=== PATIENT | female | born 1960 | race Caucasian/White ===

== ENCOUNTER 2017-07-18 08:00 | Emergency (ER) | payer OTHER ==
[~2017-07-18] VITALS: Ht 157.5 cm; Wt 108.0 kg
[~2017-07-18 08:00] MED LIST: CYCL10TA PO; FLUO40CA PO; JANU50TA4 PO; LISI40TA PO; TETA1INJ5 IM; TRAM50TA PO; ZOSTINJ SQ
[2017-07-18 08:04] VITALS: BP 136/74; PULSE 69; RESP 20; TEMP 97.8; O2SAT 97
[2017-07-18] MEDS ORDERED: ONDANSETRON HCL 4 MG/2 ML VIAL IVP ONE (08:15)
[2017-07-18] MEDS ORDERED: SODIUM CHLORIDE 0.9% FLUSH 10 ML FLUSH IV FLUSH PRN (08:15)
[2017-07-18] MEDS ORDERED: SODIUM CHLOR 0.9% 1000 ML INJ 1,000 ML IV SCH (08:15)
[2017-07-18] MEDS ORDERED: MORPHINE SULFATE 4 MG/ML INJ IV PUSH ONE (08:15)
[2017-07-18 08:20] VITALS: PULSE 67; RESP 18; O2SAT 97
--- NOTE | 2017-07-18 08:20 | PD ---
HPI Chief Complaint: Flank/Kidney Pain Time Seen by Provider: 08:08 Travel History International Travel<30 days: No Contact w/Intl Traveler<30days: No Traveled to known affect area: No History of Present Illness HPI Patient is a 56-year-old female who presents to the emergency room with complaints of left-sided flank pain. Patient reports that she began to have bouts of left-sided flank pain which radiates to her left groin for the past 2 days. Patient reports that symptoms are intermittent in nature, symptoms are exacerbated when she sits down and relaxes. Nothing makes the pain better when she has it. Patient endorses that she does have nausea with no vomiting with her symptoms. Patient denies any constipation or diarrhea. Patient denies any dysuria, hematuria, urinary urgency or frequency. Patient denies history of kidney stones in the past. Denies any fall or trauma to her left flank. She does have a past surgical history of hysterectomy, resection of pelvic mass, cholecystectomy. Patient with no chest pain or shortness of breath, patient with no other complaints at this time. PFSH Past Medical History Hx Anticoagulant Therapy: No Asthma: Yes Cerebrovascular Accident: Yes Diabetes: Yes Patient Takes Glucophage: No Diminished Hearing: No Hypertension: Yes Musculoskeletal: Yes Neurologic: Yes (STROKE 2003) ?: Not Menopausal: Yes : 2 Past Surgical History Section: Yes Cholecystectomy: Yes Hysterectomy: Yes Social History Alcohol Use: No Tobacco Use: Yes (10 cigarette per day) Substance Use: No Allergies-Medications (Allergen,Severity, Reaction): Coded Allergies: penicillin G (Unverified Allergy, Intermediate, rash, 07/18/17) Reported Meds & Prescriptions Reported Meds & Active Scripts Active Fluoxetine (Fluoxetine HCl) 40 Mg Cap 40 Cap PO DAILY Tetanus-Diphtheria Toxoid Inj 2-2 Lfu/0.5 Ml Inj 0.5 Ml IM .ONCE Zostavax Inj (Zoster Vaccine Live) 0.65 Ml Inj 0.65 Ml SQ .ONCE Flexeril (Cyclobenzaprine HCl) 10 Mg Tab 10 Mg PO TID Lisinopril 40 Mg Tab 40 Mg PO DAILY Janumet (Sitagliptin-Metformin) 50-500 Mg Tab 1 Tab PO BID Tramadol (Tramadol HCl) 50 Mg Tab 50 Mg PO BID PRN Review of Systems General / Constitutional: No: Fever Eyes: No: Visual changes HENT: No: Headaches Cardiovascular: No: Chest Pain or Discomfort Respiratory: No: Shortness of Breath Gastrointestinal: Positive: Nausea, No: Vomiting, Diarrhea, Abdominal Pain Genitourinary: Positive: Flank Pain, No: Urgency, Frequency, Dysuria, Hematuria Musculoskeletal: No: Pain Skin: No Rash Neurologic: No: Weakness Psychiatric: No: Depression Endocrine: No: Polydipsia Hematologic/Lymphatic: No: Easy Bruising Physical Exam Narrative GENERAL: Mild distress SKIN: Focused skin assessment warm/dry. HEAD: Atraumatic. Normocephalic. EYES: Pupils equal and round. No scleral icterus. No injection or drainage. ENT: No nasal bleeding or discharge. Mucous membranes pink and moist. NECK: Trachea midline. No JVD. CARDIOVASCULAR: Regular rate and rhythm. No murmur appreciated. RESPIRATORY: No accessory muscle use. Clear to auscultation. Breath sounds equal bilaterally. GASTROINTESTINAL: Abdomen soft, non-tender, nondistended. Hepatic and splenic margins not palpable. Patient with left-sided flank pain MUSCULOSKELETAL: No obvious deformities. No clubbing. No cyanosis. No edema. NEUROLOGICAL: Awake and alert. No obvious cranial nerve deficits. Motor grossly within normal limits. Normal speech. PSYCHIATRIC: Appropriate mood and affect; insight and judgment normal. Data Data Last Documented VS Vital Signs Date Time Temp Pulse Resp B/P (MAP) Pulse Ox O2 Delivery O2 Flow Rate FiO2 07/18/17 08:20 67 18 97 Room Air 07/18/17 08:04 97.8 136/74 (94) Orders Orders Complete Blood Count With Diff (07/18/17 08:15) Comprehensive Metabolic Panel (07/18/17 08:15) Lipase (07/18/17 08:15) Prothrombin Time / Inr (Pt) (07/18/17 08:15) Act Partial Throm Time (Ptt) (07/18/17 08:15) Urinalysis - C+S If Indicated (07/18/17 08:15) Ct Abd/Pel W/O Iv Contrast (07/18/17 08:15) Iv Access Insert/Monitor (07/18/17 08:15) Ecg Monitoring (07/18/17 08:15) Oximetry (07/18/17 08:15) Morphine Inj (Morphine Inj) (07/18/17 08:15) Ondansetron Inj (Zofran Inj) (07/18/17 08:15) Sodium Chlor 0.9% 1000 Ml Inj (Ns 1000 M (07/18/17 08:15) Sodium Chloride 0.9% Flush (Ns Flush) (07/18/17 08:15) Electrocardiogram (07/18/17 08:15) Labs Laboratory Tests Test 07/18/17 08:18 07/18/17 08:25 Urine Color YELLOW Urine Turbidity CLEAR Urine pH 5.5 Urine Specific Home 1.024 Urine Protein TRACE mg/dL Urine Glucose (UA) NEG mg/dL Urine Ketones NEG mg/dL Urine Occult Blood NEG Urine Nitrite NEG Urine Bilirubin NEG Urine Urobilinogen 0.2 MG/DL Urine Leukocyte Esterase NEG Urine WBC 1 /hpf Urine Squamous Epithelial Cells 3 /hpf Urine Bacteria RARE /hpf Urine Hyaline Casts 3 /lpf Microscopic Urinalysis Comment CULT NOT INDICATED White Blood Count 8.4 TH/MM3 Red Blood Count 4.82 MIL/MM3 Hemoglobin 14.2 GM/DL Hematocrit 42.1 % Mean Corpuscular Volume 87.3 FL Mean Corpuscular Hemoglobin 29.6 PG Mean Corpuscular Hemoglobin Concent 33.9 % Red Cell Distribution Width 14.1 % Platelet Count 257 TH/MM3 Mean Platelet Volume 7.6 FL Neutrophils (%) (Auto) 66.0 % Lymphocytes (%) (Auto) 25.8 % Monocytes (%) (Auto) 5.2 % Eosinophils (%) (Auto) 2.5 % Basophils (%) (Auto) 0.5 % Neutrophils # (Auto) 5.6 TH/MM3 Lymphocytes # (Auto) 2.2 TH/MM3 Monocytes # (Auto) 0.4 TH/MM3 Eosinophils # (Auto) 0.2 TH/MM3 Basophils # (Auto) 0.0 TH/MM3 CBC Comment DIFF FINAL Differential Comment Prothrombin Time 9.5 SEC Prothromb Time International Ratio 0.9 RATIO Activated Partial Thromboplast Time 24.5 SEC Blood Urea Nitrogen 10 MG/DL Creatinine 0.91 MG/DL Random Glucose 140 MG/DL Total Protein 7.2 GM/DL Albumin 3.6 GM/DL Calcium Level 8.6 MG/DL Alkaline Phosphatase 84 U/L Aspartate Amino Transf (AST/SGOT) 14 U/L Alanine Aminotransferase (ALT/SGPT) 32 U/L Total Bilirubin 0.5 MG/DL Sodium Level 141 MEQ/L Potassium Level 4.0 MEQ/L Chloride Level 107 MEQ/L Carbon Dioxide Level 24.9 MEQ/L Anion Gap 9 MEQ/L Estimat Glomerular Filtration Rate 64 ML/MIN Lipase 122 U/L MDM Medical Decision Making Medical Screen Exam Complete: Yes Emergency Medical Condition: Yes Medical Record Reviewed: Yes Interpretation(s) Vital Signs Date Time Temp Pulse Resp B/P (MAP) Pulse Ox O2 Delivery O2 Flow Rate FiO2 07/18/17 08:04 97.8 69 20 136/74 (94) 97 Differential Diagnosis Kidney stone, pyelonephritis, muscle skeletal pain Narrative Course 56-year-old female who presents the emergency room with complaint of left-sided flank pain which radiates to her left groin which has been intermittent in nature for the past 2 days. Patient with no fever/chills, reports nausea with no vomiting. Denies history of kidney stones in the past. During the course of the patients emergency department visit, the patients history, examination, and differential diagnosis were reviewed with the patient. The patient was placed on a quality assurance monitor final with oximetry and frequent blood pressure monitoring. The patient had an IV access obtained and blood work sent for analysis. The patient was initially provided IV fluids, IV morphine and IV zofran. The patients laboratory studies were reviewed and remarkable for: CBC & BMP Diagram 07/18/17 08:25 Total Protein 7.2, Albumin 3.6, Calcium Level 8.6, Alkaline Phosphatase 84, Aspartate Amino Transf (AST/SGOT) 14 L, Alanine Aminotransferase (ALT/SGPT) 32, Total Bilirubin 0.5 Radiology studies were reviewed and remarkable for Last Impressions Abdomen/Pelvis CT 07/18/17 0815 Signed Impressions: Service Date/Time: Tuesday, July 18, 2017 08:40 - CONCLUSION: 1. No renal stones identified. No definite abnormality to explain the patient's abdominal pain evident. Troy Pereira MD cbc: wnl bmp: glucose 140 ua: rare bacteria, neg leuk esterase, neg nitrites CT the abdomen pelvis with no identifiable kidney stones or recent explain patient's abdominal pain. Patient is feeling much better at this time. Plan to discharge her to home with outpatient follow-up. Signs and symptoms of when to return to the emergency room was reviewed patient detail. Diagnosis Primary Impression: Abdominal pain Qualified Codes: R10.84 - Generalized abdominal pain Additional Impression: Flank pain Patient Instructions: General Instructions Additional Instructions: Please provide patient with a copy of their lab work and studies at discharge* * Please follow up with your primary care doctor in 2-3 days Return to the ER if symptoms worsen or progress Return to the ER as needed Disposition: 01 DISCHARGE HOME Condition: Stable Tuyet Manuel DO July 18, 2017 08:20
[2017-07-18 08:38] LABS: BILIRUBIN, URINE NEG (NEG); BLOOD, URINE NEG (NEG); GLUCOSE,URINE NEG (NEG); KETONE, URINE NEG (NEG); NITRITE,URINE NEG (NEG); PH, URINE 5.5 (5.0-8.5); URINE COLOR YELLOW (YELLW/STRAW); URINE LEUKOCYTE ESTERASE NEG (NEG)
[2017-07-18 08:40] LABS: AUTOMATED NEUTROPHIL # 5.6 TH/MM3 (1.8-7.7); BASOPHIL % 0.5 % (0.0-2.0); EOSINOPHIL # 0.2 TH/MM3 (0-0.4); EOSINOPHIL % 2.5 % (0.0-4.0); HEMATOCRIT 42.1 % (35.0-46.0); HEMOGLOBIN 14.2 GM/DL (11.6-15.3); LYMPH % 25.8 % (9.0-44.0); LYMPHOCYTE # 2.2 TH/MM3 (1.0-4.8); MEAN CELL VOLUME 87.3 FL (80.0-100.0); MEAN CORPUSCULAR HEMOGLOBIN 29.6 PG (27.0-34.0); MEAN CORPUSCULAR HGB CONC 33.9 % (32.0-36.0); MEAN PLATELET VOLUME 7.6 FL (7.0-11.0); MONO % 5.2 % (0.0-8.0); MONOCYTE # 0.4 TH/MM3 (0-0.9); PLATELET COUNT 257 TH/MM3 (150-450); RED BLOOD COUNT 4.82 MIL/MM3 (4.00-5.30); RED CELL DISTRIBUTION WIDTH 14.1 % (11.6-17.2); WHITE BLOOD COUNT 8.4 TH/MM3 (4.0-11.0)
[2017-07-18 08:42] LABS: BACTERIA, URINE RARE /hpf; HYALINE CAST, URINE 3 /lpf (RARE); SQUAMOUS EPITHELIAL CELL URINE 3 /hpf (0-5)
[2017-07-18 08:45] LABS: INTERNATIONAL NORMALIZED RATIO 0.9 RATIO; PROTHROMBIN TIME - PATIENT 9.5 SEC (9.8-11.6)
[2017-07-18 08:58] LABS: ALBUMIN 3.6 GM/DL (3.4-5.0); ALT (GPT) 32 U/L (10-53); AST (GOT) 14 U/L (15-37); BICARBONATE 24.9 MEQ/L (21.0-32.0); BLOOD UREA NITROGEN 10 MG/DL (7-18); CALCIUM 8.6 MG/DL (8.5-10.1); CHLORIDE 107 MEQ/L (98-107); CREATININE 0.91 MG/DL (0.50-1.00); GLOMERULAR FILTRATION RATE 64 ML/MIN (>89); GLUCOSE,RANDOM 140 MG/DL (74-106); SODIUM (NA) 141 MEQ/L (136-145)
[2017-07-18 08:59] LABS: ALKALINE PHOSPHATASE 84 U/L (45-117); TOTAL BILIRUBIN ADULT 0.5 MG/DL (0.2-1.0); TOTAL PROTEIN 7.2 GM/DL (6.4-8.2)
--- NOTE | 2017-07-18 09:08 | RADRPT ---
EXAM DATE/TIME: 07/18/2017 08:40 [facility] COMPARISON: No previous studies available for comparison. INDICATIONS : Calculi. Left side flank pain. ORAL CONTRAST: No oral contrast ingested. RADIATION DOSE: 17.02 CTDIvol (mGy) MEDICAL HISTORY : Hypertension. SURGICAL HISTORY : Cholecystectomy. Hysterectomy. ENCOUNTER: Initial ACUITY: 2 days PAIN SCALE: 7/10 LOCATION: Left TECHNIQUE: Volumetric scanning of the abdomen and pelvis was performed. Using automated exposure control and ad justment of the mA and/or kV according to patient size, radiation dose was kept as low as reasonably achievable to obtain optimal diagnostic quality images. DICOM format image data is available electro nically for review and comparison. FINDINGS: Right kidney/ureter: The right kidney is normal in size. There is no hydronephrosis. No stones are seen. The right ureter is followed throughout its course and is normal in caliber. No stones are seen within the right urete r. Left kidney/ureter: The left kidney is normal in size. There is no hydronephrosis. No stones are seen. The left ureter is followed throughout its course and is unremarkable in appearance. Bladder: No stones are identified within the bladder. The contours of the bladder are unremarkable by noncontr ast CT imaging. CT source data: The visualized portion of lung base is clear. The appearance of the liver, spleen, pancreas and adrenal glands is within normal limits by noncontra st CT imaging. The patient is postcholecystectomy. The abdominal aorta is normal in caliber. There is no retroperitoneal adenopathy. No free air free fl uid is seen. There is no free fluid within the pelvis. No iliac or inguinal adenopathy is present. The visualized bony structures demonstrate degenerative changes but are otherwise intact. CONCLUSION: 1. No renal stones identified. No definite abnormality to explain the patient's abdominal pain eliseo Pereira MD on July 18, 2017 at 9:01 Board Certified Radiologist. This report was verified electronically.
--- NOTE | 2017-07-18 17:56 | EKG ---
Date Performed: 07/18/2017 Time Performed: 09:32:00 PTAGE: 56 years EKG: Sinus rhythm WITH OCCASIONAL VENTRICULAR PREMATURE COMPLEXES LOW QRS VOLTAGE IN PRECORDIAL LEADS BORDERLINE ECG S guille the PREVIOUS TRACING , no significant change noted PREVIOUS TRACIN01/30/2016 10.10 DOCTOR: Ashvin Gunn Interpretating Date/Time 07/18/2017 16:34:13
== END 2017-07-18 10:37 | disposition home or self-care (01) ==
LOC: NEPE 08:00
DX: R10.84 Generalized abdominal pain (principal); R11.0 Nausea; J45.909 Unspecified asthma, uncomplicated; E11.9 Type 2 diabetes mellitus without complications; I10 Essential (primary) hypertension; Z86.73 Personal history of transient ischemic attack (TIA), and cerebral infarction without residual deficits
CPT/HCPCS: 74176; 80053; 81001; 83690; 85025; 85610; 85730; 93005; 96374; 96375; 99285; J2270; J2405; J7030

== ENCOUNTER 2017-08-15 10:28 | Emergency (ER) | payer OTHER ==
[~2017-08-15] VITALS: Ht 154.9 cm; Wt 108.0 kg
[2017-08-15 10:34] VITALS: BP 148/63; PULSE 78; RESP 16; TEMP 98.4; O2SAT 99
--- NOTE | 2017-08-15 10:52 | PD ---
HPI Chief Complaint: Pain: Acute or Chronic Time Seen by Provider: 10:38 Travel History International Travel<30 days: No Contact w/Intl Traveler<30days: No Traveled to known affect area: No History of Present Illness HPI The patient was seen and examined in the presence of the nurse. This patient complains of pain in her left buttock. Started 2 days ago when she fell backwards onto the ground and landed on her buttocks. There is no pain prior to the fall. She landed on grass. She is ambulatory. She does not have any back pain. No sciatic radiation. No neurologic complaint. Severity is moderate and worse with movement PFSH Past Medical History Hx Anticoagulant Therapy: No Asthma: Yes Cerebrovascular Accident: Yes Diabetes: Yes Diminished Hearing: No Hypertension: Yes Musculoskeletal: Yes Neurologic: Yes (STROKE 2003) Menopausal: Yes : 2 Past Surgical History Section: Yes Cholecystectomy: Yes Hysterectomy: Yes Social History Alcohol Use: No Tobacco Use: Yes (10 cigarette per day) Substance Use: No Allergies-Medications (Allergen,Severity, Reaction): Coded Allergies: penicillin G (Unverified Allergy, Intermediate, rash, 07/18/17) Reported Meds & Prescriptions Reported Meds & Active Scripts Active Tramadol (Tramadol HCl) 50 Mg Tab 50 Mg PO Q6H PRN Fluoxetine (Fluoxetine HCl) 40 Mg Cap 40 Cap PO DAILY Tetanus-Diphtheria Toxoid Inj 2-2 Lfu/0.5 Ml Inj 0.5 Ml IM .ONCE Zostavax Inj (Zoster Vaccine Live) 0.65 Ml Inj 0.65 Ml SQ .ONCE Flexeril (Cyclobenzaprine HCl) 10 Mg Tab 10 Mg PO TID Lisinopril 40 Mg Tab 40 Mg PO DAILY Janumet (Sitagliptin-Metformin) 50-500 Mg Tab 1 Tab PO BID Tramadol (Tramadol HCl) 50 Mg Tab 50 Mg PO BID PRN Review of Systems General / Constitutional: No: Fever Eyes: No: Visual changes HENT: No: Headaches Cardiovascular: No: Chest Pain or Discomfort Respiratory: No: Shortness of Breath Gastrointestinal: No: Abdominal Pain Genitourinary: No: Dysuria Musculoskeletal: Positive: Pain Skin: No Rash Neurologic: No: Weakness Psychiatric: No: Depression Endocrine: No: Polydipsia Hematologic/Lymphatic: No: Easy Bruising Physical Exam Narrative GENERAL: Well-nourished, well-developed patient in no apparent distress. SKIN: Focused skin assessment reveals no rash and nodules. Skin is Warm and dry. HEAD: Atraumatic. Normocephalic. EYES: Pupils equal and round. No scleral icterus. No injection or drainage. ENT: No nasal bleeding or discharge. Mucous membranes pink and moist. NECK: Trachea midline. No JVD. CARDIOVASCULAR: Regular rate and rhythm. No murmur appreciated. RESPIRATORY: No accessory muscle use. Clear to auscultation. Breath sounds equal bilaterally. GASTROINTESTINAL: Abdomen soft, morbidly obese, non-tender, nondistended. Hepatic and splenic margins not palpable. MUSCULOSKELETAL: No obvious deformities. No clubbing. No cyanosis. No edema. No midline tenderness of the back. No bruising or swelling. Good range of motion of hips no long bone tenderness NEUROLOGICAL: Awake and alert. No obvious cranial nerve deficits. Motor grossly within normal limits. Normal speech. PSYCHIATRIC: Appropriate mood and affect; insight and judgment normal. Data Data Last Documented VS Vital Signs Date Time Temp Pulse Resp B/P (MAP) Pulse Ox O2 Delivery O2 Flow Rate FiO2 08/15/17 10:34 98.4 78 16 148/63 (91) 99 Orders Orders Oxycodone-Acetamin 7.5-325 Mg (Percocet (08/15/17 11:00) Pelvis, Ap Only (Routine) (08/15/17 ) MDM Medical Decision Making Medical Screen Exam Complete: Yes Emergency Medical Condition: Yes Medical Record Reviewed: Yes Differential Diagnosis Pelvic fracture, contusion, muscle strain Narrative Course I have reviewed the patient's electronic medical record. I reviewed her pelvis x-ray which is normal I gave her a pain pill She has soft tissue buttock contusion I expect to resolve gradually over time. She asked for something for discomfort and 10 tramadol written Diagnosis Primary Impression: Contusion, buttock Qualified Codes: S30.0XXA - Contusion of lower back and pelvis, initial encounter Additional Instructions: The patient was warned about potential sedation for the medications they will receive on prescription. The patient was advised to follow up with their physician and return if they worsen. Med/Other Pt SpecificInfo: Prescription(s) given Scripts Tramadol (Tramadol) 50 Mg Tab 50 MG PO Q6H Y for PAIN, #10 TAB 0 Refills Prov: Benja Rivera MD 08/15/17 Disposition: 01 DISCHARGE HOME Condition: Stable Benja Rivera MD Aug 15, 2017 10:52
[2017-08-15] MEDS ORDERED: oxyCODONE/ACETAMINOPHEN 7.5 MG/325 MG TAB PO ONE (11:00)
--- NOTE | 2017-08-15 11:12 | RADRPT ---
EXAM DATE: 08/15/2017 11:06 AM EDT AGE/SEX: 57 years / Female INDICATIONS: Left posterior pelvis/buttock pain. CLINICAL DATA: This is the patient's initial encounter. Patient reports that signs and symptoms have been present for 1 day and indicates a pain score of 10/10. MEDICAL/SURGICAL HISTORY: None. None. COMPARISON: No prior [facility] exams available for comparison. FINDINGS: Degenerative changes SI joints and both hips. Negative for fracture. No radiopaque foreign bodies or free air. CONCLUSION: Negative for an acute process. Electronically signed by: Willie Pereira MD 08/15/2017 11:11 AM EDT
[2017-08-15] MEDS ORDERED: TRAM50TA PO (11:36)
== END 2017-08-15 12:06 | disposition home or self-care (01) ==
LOC: NEPD 10:28
DX: S30.0XXA Contusion of lower back and pelvis, initial encounter (principal); J45.909 Unspecified asthma, uncomplicated; E11.9 Type 2 diabetes mellitus without complications; I10 Essential (primary) hypertension; F17.210 Nicotine dependence, cigarettes, uncomplicated; W18.30XA Fall on same level, unspecified, initial encounter; Z88.0 Allergy status to penicillin; Z86.73 Personal history of transient ischemic attack (TIA), and cerebral infarction without residual deficits; Z79.899 Other long term (current) drug therapy
CPT/HCPCS: 72170; 99283